=== PATIENT | male | born 1970 | race Caucasian/White ===

== ENCOUNTER 2022-02-24 07:14 | Day surgery (SDC) | payer OTHER ==
[2022-02-18 14:05] VITALS: BMI 36.1
[2022-02-24] MEDS ORDERED: PROPOFOL 20 ML ONE ×4 (07:51)
[2022-02-24 10:04] VITALS: TEMP 98
[2022-02-24 10:21] VITALS: BP 120/76; PULSE 80
== END 2022-02-24 10:55 | disposition home or self-care (01) ==
LOC: FASU-ENDO 07:14
PROVIDERS: ATTEND Internal Medicine Gastroenterology
PROC: 0DBC8ZX Excision of Ileocecal Valve, Via Natural or Artificial Opening Endoscopic, Diagnostic (ICD-10-PCS; 2022-02-24)
PROC: 0DBH8ZX Excision of Cecum, Via Natural or Artificial Opening Endoscopic, Diagnostic (ICD-10-PCS; principal; 2022-02-24 09:10)
DX: Z12.11 Encounter for screening for malignant neoplasm of colon (principal); K57.30 Diverticulosis of large intestine without perforation or abscess without bleeding; D12.0 Benign neoplasm of cecum
CPT/HCPCS: 82962; 88305-TC